=== PATIENT | female | born 1940 | race Caucasian/White ===

== ENCOUNTER 2018-03-01 18:14 | Inpatient (IN) | payer OTHER ==
[~2018-03-01] VITALS: Ht 152.4 cm; Wt 76.2 kg
[~2018-03-01 18:14] MED LIST: ALLERCLEAR10 M1; ATIVAN0.5 MG; BENZONATATE100 MG; DICLOFENAC POTA50 MG; DICLOFENAC SODI50 MG PO; DICY10CA; GELNIQUE; INDERAL LA80 MG; LOPERAMIDE2 MG; MEDROLPACK PO; NEURONTIN300 MG PO; PROTONIX40 MG; ZOLOFT100 MG
[2018-03-02] MEDS ORDERED: SYNTHROID112 MCG
[2018-03-06] MEDS ORDERED: CEFADROXIL500 MG PO (08:24)
[2018-03-06] MEDS ORDERED: PERCOCET 5-3251 EACH PO (08:24)
[2018-03-06] MEDS ORDERED: ELIQUIS2.5 MG PO (08:24)
== END 2018-03-06 18:18 | DRG 481 ==
LOC: ER 18:14 → MEDI 22:50 → SURH 22:50
PROVIDERS: Orthopaedic Surgery
PROC: 0QHB06Z Insertion of Intramedullary Internal Fixation Device into Right Lower Femur, Open Approach (ICD-10-PCS; principal; 2018-03-02 14:00)
PROC: 30233N1 Transfusion of Nonautologous Red Blood Cells into Peripheral Vein, Percutaneous Approach (ICD-10-PCS; 2018-03-03)
DX: S72.21XA Displaced subtrochanteric fracture of right femur, initial encounter for closed fracture (principal); M80.00XA Age-related osteoporosis with current pathological fracture, unspecified site, initial encounter for fracture; D62 Acute posthemorrhagic anemia; W18.39XA Other fall on same level, initial encounter; I10 Essential (primary) hypertension; E03.8 Other specified hypothyroidism; D86.89 Sarcoidosis of other sites; F32.9 Major depressive disorder, single episode, unspecified; F41.8 Other specified anxiety disorders; Y93.89 Activity, other specified; Y92.098 Other place in other non-institutional residence as the place of occurrence of the external cause